=== PATIENT | female | born 1990 | race African-American/Black ===

== ENCOUNTER 2019-03-22 09:17 | Emergency (ER) | payer OTHER ==
[~2019-03-22] VITALS: Ht 144.8 cm; Wt 103.0 kg
[~2019-03-22 09:17] MED LIST: PREN1TAB58 PO
[2019-03-22 09:59] VITALS: BP 147/90
[2019-03-22] MEDS ORDERED: DICL50TA2 PO (10:06)
[2019-03-22] MEDS ORDERED: CYCL10TA2 PO (10:06)
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
== END 2019-03-22 10:16 | disposition home or self-care (01) ==
LOC: ER 09:17
DX: S13.9XXA Sprain of joints and ligaments of unspecified parts of neck, initial encounter (principal); R51 Headache; V49.49XA Driver injured in collision with other motor vehicles in traffic accident, initial encounter; Y92.488 Other paved roadways as the place of occurrence of the external cause; Y93.89 Activity, other specified; Y99.8 Other external cause status
CPT/HCPCS: 99283